=== PATIENT | male | born 1950 | race Caucasian/White ===

== ENCOUNTER → 2022-01-03 | Outpatient (CLI) | payer MEDICARE, OTHER ==
[~2022-01-03] MED LIST: Ambien5 MG PO; GABA100 PO; GLIP5ER PO; LEVEMIR FL100 UNIT/2 SC; LISI20 PO; VITAMIN B122500 MC1 PO
== END | disposition home or self-care (01) ==
LOC: LAB 10:46 → LAB SHORT 10:46
DX: J02.9 Acute pharyngitis, unspecified (principal)
CPT/HCPCS: 87081

== ENCOUNTER 2022-04-15 10:25 | Inpatient (IN) | payer MEDICARE, OTHER ==
[~2022-04-15] VITALS: Ht 180.3 cm; Wt 66.0 kg
[2022-04-15 13:57] LABS: Influenza A, PCR NEGATIVE (NEGATIVE); Influenza B, PCR NEGATIVE (NEGATIVE); Resp Syncytial Virus, PCR NEGATIVE (NEGATIVE); SARS-Cov-2 (COVID-19) PCR, MMC NEGATIVE (NEGATIVE)
[2022-04-15] MEDS ORDERED: PLAVIX75 MG PO (14:40)
[2022-04-15] MEDS ORDERED: ONDA8 PO (14:40)
[2022-04-15] MEDS ORDERED: GLIP10ER PO (14:41)
[2022-04-15] MEDS ORDERED: PEPCID40 MG PO (14:41)
[2022-04-15] MEDS ORDERED: [UNRECOGNIZED DRUG - CODE] PO (14:42)
[2022-04-15] MEDS ORDERED: MULVITA PO (14:42)
[2022-04-15] MEDS ORDERED: ATOR40TA PO (14:42)
[2022-04-15] MEDS ORDERED: MAGNESIUM OXID500 MG PO (14:43)
[2022-04-15 16:00] LABS: International Normalized Ratio 1.22; Prothrombin Time Results 12.6 Sec (9.7-11.5)
--- NOTE | 2022-04-15 19:35 | NUR ---
PATIENT ARRIVED TO MEDICAL FLOOR AT 1810. ORIENTED TO ROOM. HE IS ALERT AND ABLE TO ANSWER QUESTIONS APPROPRIATELY. REVIEWED FALL SAFETY. AT THIS TIME HE IS A ONE PERSON STAND BY ASSIST. HE IS INDEPENDENT AT BASELINE. CLAIRIFIED ORDERS WITH , PATIENT CAN HAVE CLEAR LIQUID DIET AND BLOOD SUGAR CHECKS AND SS INSULIN TO BE CHANGED TO AC&HS. REPORT GIVEN TO KATHLEEN MANN.
--- NOTE | 2022-04-16 04:06 | NUR ---
SHIFT SUMMARY PT HAD TWO EPISODES OF EMESIS. MEDICATED PER EMAR. PT CONTINUES TO HAVE PAIN IN HIS ABD. MEDICATED PER EMAR. PT OTHERWISE PLEASANT AND COOPERATIVE. PT HAS BILIARY DRAIN THAT IS DRAINING DARK BROWNISH COLOR LIQUID. DRAIN DRESSING IS IN TACT. PT HAS NO COMPLAINTS AT THIS TIME. CALL LIGHT IS WITHIN HIS REACH.
[2022-04-16 04:42] LABS: BASOPHILS ABSOLUTE AUTO 0.03 K/mm3 (0.00-0.23); BASOPHILS PERCENT AUTO 0 % (0-2); EOSINOPHILS ABSOLUTE AUTO 0.11 K/mm3 (0.00-0.68); EOSINOPHILS PERCENT AUTO 1 % (0-6); Hematocrit 28.9 % (37.0-53.0); Hemoglobin 10.2 g/dL (13.5-17.5); IMMATURE GRAN ABSOLUTE AUTO 0.05 K/mm3 (0.00-0.10); IMMATURE GRAN PERCENT AUTO 1 % (0-1); LYMPHOCYTES ABSOLUTE AUTO 0.85 K/mm3 (0.84-5.20); LYMPHOCYTES PERCENT AUTO 11 % (21-46); MONOCYTES ABSOLUTE AUTO 0.58 K/mm3 (0.16-1.47); MONOCYTES PERCENT AUTO 7 % (4-13); Mean Corpuscular HGB Conc 35.3 g/dL (31.5-36.5); Mean Corpuscular Volume 88 fL (80-100); Mean Platelet Volume 9.7 fL (9.1-12.4); NEUTROPHILS ABSOLUTE AUTO 6.39 K/mm3 (1.96-9.15); NEUTROPHILS PERCENT AUTO 80 % (41-73); Platelet Count 287 K/mm3 (150-400); RDW Coefficient Variation 16.7 % (11.7-14.2); RDW Standard Deviation 53.3 fL (35.1-46.3); Red Blood Cell Count 3.29 M/mm3 (4.30-5.90); White Blood Cell Count 8.01 K/mm3 (4.00-11.30)
[2022-04-16 05:10] LABS: Albumin, Blood 2.8 g/dL (3.4-5.0); Albumin/Globulin Ratio 0.9 (0.8-1.8); Bilirubin, Total 9.9 mg/dL (0.1-1.0); Bun/Creatinine Ratio 45.1 (12.0-20.0); Calcium, Blood 8.4 mg/dL (8.5-10.1); Creatinine, Blood 0.51 mg/dL (0.60-1.20); Magnesium, Blood 2.4 mg/dL (1.6-2.4); Potassium, Blood 4.4 mmol/L (3.5-5.5); Total Protein, Blood 5.8 g/dL (6.4-8.2)
--- NOTE | 2022-04-16 05:47 | NUR ---
CALLED ANSWERING SERVICE FOR CONSULT FOR DR. ERAZO FOR TODAY
--- NOTE | 2022-04-16 17:59 | NUR ---
SHIFT SUMMARY PATIENT MEDICATED FOR PAIN X3. PATIENT MEDICATED FOR NAUSEA X5. PATIENT DENIES SHORTNESS OF BREATH. PATIENT HAD MULTIPLE ROUNDS OF EMESIS. PATIENT BILIARY DRAIN EMPTIED FREQUENTLY. PATIENT IS A SBA IN ROOM. DR. ERAZO CONSULTED, SEE NOTES. CT OF CHEST WITH CONTRAST DONE. DR. CARRIZALES CONSULTED. SEE NOTES. CT BX OF PANCREAS ORDERED, PER RADIOLOGY UNABLE TO PERFORM. DR. CARRIZALES NOTIFIED, HE WILL DOTHE BIOPSY TOMORROW, 04/17. PATIENT TO BE NPO AFTER BREAKFAST FOR THAT PROCEDURE. PATIENT IS UNABLE TO KEEP CLEAR LIQUID DIET DOWN. PATIENT IS VERY PLEASANT AND COOPERATIVE WITH CARE.
--- NOTE | 2022-04-16 18:38 | NUR ---
Met pt this evening, introduced myself as Palliative Care, explained we are an "extra layer of support" for pt's and families. We made small talk for several minutes, and pt states, "Yes that would be really nice" when I asked if I can visit again tomorrow. Unsure when pt will have results of imaging, so providing no insite on tests at this point. Will continue with daily visits.
--- NOTE | 2022-04-17 03:54 | NUR ---
SHIFT SUMMARY PT CONTINUES TO BE NAUSEATED AND IN PAIN. PT HAS BEEN MEDICATED PER EMAR SEVERAL TIMES THIS SHIFT FOR NAUSEA AND PAIN. CALLED DR. WALLS AND WAS GIVEN A ONE TIME DOSE OF FENTANYL AND AN INCREASE IN REGLAN FROM 5 TO 10. PT VOMITING THROUGHOUT SHIFT AND STS HE CANNOT DO ANOTHER NIGHT LIKE THIS. PT HAS CALL LIGHT WITHIN REACH.
[2022-04-17 04:41] LABS: BASOPHILS ABSOLUTE AUTO 0.04 K/mm3 (0.00-0.23); BASOPHILS PERCENT AUTO 0 % (0-2); EOSINOPHILS PERCENT AUTO 0 % (0-6); Hematocrit 33.4 % (37.0-53.0); Hemoglobin 11.6 g/dL (13.5-17.5); IMMATURE GRAN ABSOLUTE AUTO 0.08 K/mm3 (0.00-0.10); IMMATURE GRAN PERCENT AUTO 1 % (0-1); LYMPHOCYTES ABSOLUTE AUTO 0.67 K/mm3 (0.84-5.20); LYMPHOCYTES PERCENT AUTO 6 % (21-46); MONOCYTES ABSOLUTE AUTO 0.79 K/mm3 (0.16-1.47); MONOCYTES PERCENT AUTO 7 % (4-13); Mean Corpuscular HGB 30.9 pg (26.0-34.0); Mean Corpuscular HGB Conc 34.7 g/dL (31.5-36.5); Mean Corpuscular Volume 89 fL (80-100); NEUTROPHILS ABSOLUTE AUTO 9.65 K/mm3 (1.96-9.15); NEUTROPHILS PERCENT AUTO 86 % (41-73); Platelet Count 379 K/mm3 (150-400); RDW Coefficient Variation 16.7 % (11.7-14.2); RDW Standard Deviation 53.6 fL (35.1-46.3); Red Blood Cell Count 3.75 M/mm3 (4.30-5.90); White Blood Cell Count 11.23 K/mm3 (4.00-11.30)
[2022-04-17 05:02] LABS: Albumin, Blood 3.3 g/dL (3.4-5.0); Albumin/Globulin Ratio 0.9 (0.8-1.8); Bilirubin, Total 9.7 mg/dL (0.1-1.0); Bun/Creatinine Ratio 26.3 (12.0-20.0); Calcium, Blood 9.7 mg/dL (8.5-10.1); Creatinine, Blood 0.69 mg/dL (0.60-1.20); Globulin, Blood 3.7 g/dL (2.2-4.0)
--- NOTE | 2022-04-17 12:36 | NUR ---
Pt is experiencing intractable nausea/vomiting today. He has not been able to take so much as a sip of water without immediately wretching. Received orders for Haldol Sublingual from Dr. Agudelo after a pharmacy consult re: n/v. Will continue to follow.
--- NOTE | 2022-04-17 12:50 | NUR ---
Pt's overall condition is declining rapidly; he continues to have n/v in between napping. He has also been attempting to drink out of the sink in his room even though he knows/knew he was NPO prior to having biopsy today. He doesn't remember this suddenly, and is speaking in word salad, and doesn't remember speaking to the nurse or taking any IV or other medications. Istrate informed, and he will call Dr. Arevalo as well as ordering new meds for pain, anxiety, and nausea. Plan to call pt's sister, to let her know of pt's current condition. Will continue to work with this patient.
--- NOTE | 2022-04-17 13:32 | NUR ---
Placed call to pt's sister Kassy who tells me she is currently en route to the hospital. She states the pt told her this morning he has cancer with lung involvement. She states she will be here in about 2 hours. Reviewed current plan of care and pt's condition with Kassy. Will discuss goals of care further when she arrives.
[2022-04-17 13:37] LABS: BASOPHILS ABSOLUTE AUTO 0.03 K/mm3 (0.00-0.23); BASOPHILS PERCENT AUTO 0 % (0-2); EOSINOPHILS PERCENT AUTO 0 % (0-6); Hematocrit 33.6 % (37.0-53.0); Hemoglobin 11.8 g/dL (13.5-17.5); IMMATURE GRAN ABSOLUTE AUTO 0.05 K/mm3 (0.00-0.10); IMMATURE GRAN PERCENT AUTO 0 % (0-1); LYMPHOCYTES ABSOLUTE AUTO 0.85 K/mm3 (0.84-5.20); LYMPHOCYTES PERCENT AUTO 6 % (21-46); MONOCYTES ABSOLUTE AUTO 1.14 K/mm3 (0.16-1.47); MONOCYTES PERCENT AUTO 8 % (4-13); Mean Corpuscular HGB 31.1 pg (26.0-34.0); Mean Corpuscular HGB Conc 35.1 g/dL (31.5-36.5); Mean Corpuscular Volume 89 fL (80-100); Mean Platelet Volume 9.7 fL (9.1-12.4); NEUTROPHILS ABSOLUTE AUTO 11.96 K/mm3 (1.96-9.15); NEUTROPHILS PERCENT AUTO 85 % (41-73); Platelet Count 408 K/mm3 (150-400); RDW Coefficient Variation 16.8 % (11.7-14.2); RDW Standard Deviation 53.8 fL (35.1-46.3); Red Blood Cell Count 3.79 M/mm3 (4.30-5.90); White Blood Cell Count 14.03 K/mm3 (4.00-11.30)
[2022-04-17 13:41] LABS: Albumin, Blood 3.5 g/dL (3.4-5.0); Albumin/Globulin Ratio 0.9 (0.8-1.8); Bun/Creatinine Ratio 30.5 (12.0-20.0); Calcium, Blood 10.1 mg/dL (8.5-10.1); Creatinine, Blood 0.76 mg/dL (0.60-1.20); Globulin, Blood 3.9 g/dL (2.2-4.0); Potassium, Blood 3.8 mmol/L (3.5-5.5); Total Protein, Blood 7.4 g/dL (6.4-8.2)
--- NOTE | 2022-04-17 15:15 | NUR ---
PROCEDURE PER DR. COOK, GIVE 1MG ATIVAN IV AT 1430 FOR BIOPSY AT 1500. MEDICATION RECIEVED FROM PHARMACY AND GIVEN. TRANSPORT TOOK PATIENT AT 1450. PATIENT FAMILY IN ROOM.
--- NOTE | 2022-04-17 19:33 | NUR ---
SHIFT SUMMARY PATINET MEDICATED FOR PAIN X5. PATIENT MEDICATED FOR NAUSEA X5. PATIENT DENIES SHORTNESS OF BREATH. PATIENT MEDICATED WITH ATIVAN FOR NAUSEA PER THE PALLIATIVE CARE NURSE X2. PATINET MEDICATED WITH HALDOL FOR SAME X2. PATIENT CONTINUED TO VOMIT THROUGHOUT SHIFT. PATIENT IS HAVING INCREASING CONFUSION. PALLIATIVE CARE NURSE CONSULTED THROUGHOUT DAY, SEE NOTES. PATIENT TAKEN FOR BIOPSY. PER DR. COOK, STOMACH WAS FULL AND PLACED ORDERS FOR NG. 3 RNS ATTEMPTED TO PLACED NG, NOT SUCCESSFUL. NIGHTSHIFT CHARGE NURSE ATTEMPTED, NO SUCCESS. NIGHTSHIFT RN WILL ATTEMPT AGAIN. PATIENT CALLED FAMILY AND INFORMED THEM OF HOSPITALIZATION, THEY VISITED THIS AFTERNOON. PATIENT HAS REQUESTED HIS NOT BE GIVEN INFORMATION, THEY ARE ESTRANGED. PATIENT UNABLE TO KEEP ANYTHING DOWN, INCLUDING LIQUIDS AND MEDICATIONS.
--- NOTE | 2022-04-17 20:20 | NUR ---
NG TUBE PLACED BY SANDRA RAMON RN AFTER SEVERAL ATTEMPTS BY MEDICAL FLOOR STAFF. HOOKED UP TO INTERMITTENT SUCTION WITH BROWN LIQUID DRAINING.
--- NOTE | 2022-04-17 22:30 | NUR ---
SON CAROLYNN CALLED EARLIER, I TRIED TO RETURN HIS CALL, NO ANSWER. SISTER KIMBERLEY CALLED EARLIER ALSO. SHE WILL COME IN TO VISIT EARLY TOMORROW MORNING. CAROLYNN [phone] KIMBERLEY [phone]
--- NOTE | 2022-04-18 04:13 | NUR ---
SHIFT SUMMARY PT HAD NG PLACED AT THE BEGINNING OF THE SHIFT BY ICU NURSE. PT HOOKED TO SUCTION AND HAS HAD AN OUTPUT OF OVER 2450 ML AT THIS TIME. PT SEEMS INCREASINGLY CONFUSED AT TIMES, TRYING TO PULL AT NG TUBE OR TRYING TO GET OUT OF BED. PT TRIED DRINKING HIS OWN BILE OUT OF THE [employer] VOMIT BUCKETS. PT CAN BE IMPULSIVE AND AT TIMES GETS OUT OF BED WITHOUT CALLING FOR HELP. PT CONTINUES TO BE NAUSEATED, BUT IT SEEMS TO HAVE SLOWED SINCE YESTERDAY. PT STILL COMPLAINS OF PAIN AND NAUSEA OFTEN. MEDICATED PER EMAR. PT HAS CALL LIGHT WITHIN REACH AND HAS NO COMPLAINTS AT THIS TIME.
[2022-04-18 06:15] LABS: BASOPHILS ABSOLUTE AUTO 0.02 K/mm3 (0.00-0.23); BASOPHILS PERCENT AUTO 0 % (0-2); EOSINOPHILS PERCENT AUTO 0 % (0-6); Hematocrit 31.4 % (37.0-53.0); Hemoglobin 10.6 g/dL (13.5-17.5); IMMATURE GRAN ABSOLUTE AUTO 0.07 K/mm3 (0.00-0.10); IMMATURE GRAN PERCENT AUTO 1 % (0-1); LYMPHOCYTES ABSOLUTE AUTO 0.77 K/mm3 (0.84-5.20); LYMPHOCYTES PERCENT AUTO 5 % (21-46); MONOCYTES ABSOLUTE AUTO 1.28 K/mm3 (0.16-1.47); MONOCYTES PERCENT AUTO 9 % (4-13); Mean Corpuscular HGB 30.6 pg (26.0-34.0); Mean Corpuscular HGB Conc 33.8 g/dL (31.5-36.5); Mean Corpuscular Volume 91 fL (80-100); Mean Platelet Volume 9.9 fL (9.1-12.4); NEUTROPHILS PERCENT AUTO 85 % (41-73); Platelet Count 408 K/mm3 (150-400); RDW Coefficient Variation 16.9 % (11.7-14.2); Red Blood Cell Count 3.46 M/mm3 (4.30-5.90); White Blood Cell Count 14.14 K/mm3 (4.00-11.30)
[2022-04-18 06:36] LABS: C-REACTIVE PROTEIN, EXT RANGE 7.89 mg/dL (0.000-0.300)
[2022-04-18 06:37] LABS: Albumin, Blood 2.9 g/dL (3.4-5.0); Albumin/Globulin Ratio 0.8 (0.8-1.8); Bilirubin, Total 8.3 mg/dL (0.1-1.0); Calcium, Blood 9.3 mg/dL (8.5-10.1); Creatinine, Blood 0.9 mg/dL (0.60-1.20); Globulin, Blood 3.6 g/dL (2.2-4.0); Potassium, Blood 3.2 mmol/L (3.5-5.5); Total Protein, Blood 6.5 g/dL (6.4-8.2)
--- NOTE | 2022-04-18 17:53 | NUR ---
SHIFT SUMMARY PATIENT MEDICATED FOR PAIN X1. PATIENT MEDICATED FOR NAUSEA X3. PATIENT DENIES SHORTNESS OF BREATH. XRAY THIS MORNING SHOWED NG IN ESOPHOGUS. REMOVED NG AND REPLACED. REPEAT XR SHOWED NG IN STOMACH. MEDICATIONS ABLE TO BE GIVEN AT THAT TIME THROUGH NG. OUTPUT FROM NG TOTAL THIS SHIFT IS 1200. PATIENT NPO EXCEPT SOME ICE CHIPS. PATIENT IS A SBA FOR LINE MANAGEMENT. PATIENT STATES HE IS FEELING BETTER. ENEMA PERFORMED TODAY, MEDIUM PEBBLE LIKE OUTPUT. PATIENT HAD SISTER VISIT THROUGHOUT SHIFT. PATIENT IS PLEASANT AND COOPERATIVE WITH CARE.
[2022-04-19 05:56] LABS: BASOPHILS ABSOLUTE AUTO 0.03 K/mm3 (0.00-0.23); BASOPHILS PERCENT AUTO 0 % (0-2); EOSINOPHILS ABSOLUTE AUTO 0.06 K/mm3 (0.00-0.68); EOSINOPHILS PERCENT AUTO 1 % (0-6); Hematocrit 30.4 % (37.0-53.0); Hemoglobin 9.9 g/dL (13.5-17.5); IMMATURE GRAN ABSOLUTE AUTO 0.05 K/mm3 (0.00-0.10); IMMATURE GRAN PERCENT AUTO 1 % (0-1); LYMPHOCYTES PERCENT AUTO 11 % (21-46); MONOCYTES ABSOLUTE AUTO 0.74 K/mm3 (0.16-1.47); MONOCYTES PERCENT AUTO 7 % (4-13); Mean Corpuscular HGB Conc 32.6 g/dL (31.5-36.5); Mean Corpuscular Volume 95 fL (80-100); Mean Platelet Volume 9.8 fL (9.1-12.4); NEUTROPHILS ABSOLUTE AUTO 7.97 K/mm3 (1.96-9.15); NEUTROPHILS PERCENT AUTO 80 % (41-73); Platelet Count 378 K/mm3 (150-400); RDW Coefficient Variation 17.1 % (11.7-14.2); RDW Standard Deviation 58.1 fL (35.1-46.3); Red Blood Cell Count 3.19 M/mm3 (4.30-5.90); White Blood Cell Count 9.95 K/mm3 (4.00-11.30)
--- NOTE | 2022-04-19 06:30 | NUR ---
SUMMARY PT PAIN AND NAUSEA TX PER EMAR WITH RELIEF. PT NG TUBE WAS CLAMPED AND STARTED ON CLEAR LIQUIDS PER DR AGOSTO. NG CLAMPED AT 2100 HRS AND HAS BEEN TOLERATING FINE WITH NO EMISIS. PT HAD WATER AND ICE CHIPS. PT HAD DIFFICULTY SLEEPING DURING THE NIGHT. BILIARY DRAIN DRAINING BILE, SITE IS CDI. PT REPORTS PAIN AT DRAIN SITE AT TIMES. PT CURRENTLY SLEEPING IN NO DISTRESS. CALL LIGHT IN REACH.
[2022-04-19 06:32] LABS: Albumin, Blood 2.6 g/dL (3.4-5.0); Albumin/Globulin Ratio 0.7 (0.8-1.8); Bilirubin, Total 7.4 mg/dL (0.1-1.0); Bun/Creatinine Ratio 28.5 (12.0-20.0); Calcium, Blood 8.9 mg/dL (8.5-10.1); Creatinine, Blood 0.81 mg/dL (0.60-1.20); Globulin, Blood 3.6 g/dL (2.2-4.0); Magnesium, Blood 2.2 mg/dL (1.6-2.4); Phosphorus, Blood 3.4 mg/dL (2.5-4.9); Potassium, Blood 3.2 mmol/L (3.5-5.5); Total Protein, Blood 6.2 g/dL (6.4-8.2)
--- NOTE | 2022-04-19 17:13 | NUR ---
SHIFT SUMMARY PT AXO X3-4 BUT VERY FORGETFUL AND CONFUSED AT TIMES. EVERY TIME THIS NURSE WAS IN THE ROOM, PATIENT WOULD ASK IF HE "COULD HAVE ANY MORE MEDICATIONS." PATIENT EXPRESSED CONCERN THAT IF HE WAS NOT USING THE PAIN AND NAUSEA MEDICATIONS THAT HE WAS AFRAID THAT THEY WOULDNT BE PRESCRIBED UPON DISCHARGE. DR AGOSTO AWARE. CLEAR LIQUID DIET INITIATED AT 1130, PT TOLERATED WELL. PER DR AGOSTO'S REQUEST, NG TUBE REMOVED AT 1620. BILIARY DRAIN PATENT AND DRAINING GREEN OUTPUT. 550 ML SO FAR THIS SHIFT. IV PATENT AND INFUSING PER EMAR. PT MEDICATED FOR PAIN AND NAUSEA PER EMAR. THIS NURSE PRESENT FOR DR AGOSTO DISCUSSION WITH PATIENT AND HIS BROTHER AND BROTHER IN LAW. THESE BROTHERS STATE THAT THIS PATIENT CANNOT BE DISCHARGED TO THEIR HOMES DUE TO CAREGIVING NEEDS OF PATIENT'S SISTER. IT IS ALSO NOT AN OPTION TO RETURN TO [place] DUE TO COMPLICATED FAMILY DYNAMICS. PATIENT WILL NEED A SAFE DISCHARGE PLAN. BED IN LOW POSITION, CALL LIGHT WITHIN REACH, BED ALARM ON.
--- NOTE | 2022-04-19 17:45 | NUR ---
PATIENT'S SPOUSE CALLED FOR AN UPDATE ON PATIENT. THIS NURSE ASKED PATIENT IF I COULD UPDATE HER AND HE SAID "NO." PATIENT STATES THAT SHE IS HIS ESTRANGED AND HE DOES NOT WANT HER TO KNOW ANY OF HIS INFORMATION. SHE WAS VERY UPSET WHEN THIS NURSE APOLIGIZED AND STATED THAT AN UPDATE COULD NOT BE PROVIDED AT THIS TIME. SHE ASKED TO SPEAK TO THIS NURSE'S "COMMERCIAL LOAN REVIEWER." THIS NURSE DIRECTED HER TO CALL THE HOSPITAL BACK AT THE MAIN NUMBER AND ASK FOR THE NURSING PRODUCT LISTER.
--- NOTE | 2022-04-20 04:10 | NUR ---
Rn summary: Patient is alert and oriented. He had his NG tube removed on day shift. Since then he has been drinking lg amounts of clear liquids. He has c/o nausia most of shift until 0400. He was medicated with reglan and zofran. I did limit what he could drink until he felt better. Pt was medicated with Ativan 2mg po due to restlessness and anxiety. Pt has also been medicated with 25mcg of fentanyl q 2 hours. Pt states at 0400 that he feels hungry and denies nausia. Cup of hot tea, reminded to sip and drink small amounts. Pt is voiding, no stools yet this shift. He has had 175 cc out of his billiary drain, med green in color. Hypoactive bowel tones. Pt does stand and walk two steps to the commode. He has bed alarm on and uses the call light appropriately. Will continue to assist as needed.
[2022-04-20 05:53] LABS: BASOPHILS ABSOLUTE AUTO 0.03 K/mm3 (0.00-0.23); BASOPHILS PERCENT AUTO 0 % (0-2); EOSINOPHILS ABSOLUTE AUTO 0.51 K/mm3 (0.00-0.68); EOSINOPHILS PERCENT AUTO 7 % (0-6); Hematocrit 27.4 % (37.0-53.0); Hemoglobin 8.9 g/dL (13.5-17.5); IMMATURE GRAN ABSOLUTE AUTO 0.04 K/mm3 (0.00-0.10); IMMATURE GRAN PERCENT AUTO 1 % (0-1); LYMPHOCYTES ABSOLUTE AUTO 1.45 K/mm3 (0.84-5.20); LYMPHOCYTES PERCENT AUTO 20 % (21-46); MONOCYTES ABSOLUTE AUTO 0.54 K/mm3 (0.16-1.47); MONOCYTES PERCENT AUTO 7 % (4-13); Mean Corpuscular HGB 30.8 pg (26.0-34.0); Mean Corpuscular HGB Conc 32.5 g/dL (31.5-36.5); Mean Corpuscular Volume 95 fL (80-100); Mean Platelet Volume 9.6 fL (9.1-12.4); NEUTROPHILS ABSOLUTE AUTO 4.83 K/mm3 (1.96-9.15); NEUTROPHILS PERCENT AUTO 65 % (41-73); Platelet Count 316 K/mm3 (150-400); RDW Coefficient Variation 15.8 % (11.7-14.2); Red Blood Cell Count 2.89 M/mm3 (4.30-5.90)
[2022-04-20 06:18] LABS: Albumin, Blood 2.2 g/dL (3.4-5.0); Albumin/Globulin Ratio 0.7 (0.8-1.8); Bilirubin, Total 6.5 mg/dL (0.1-1.0); Bun/Creatinine Ratio 27.3 (12.0-20.0); Calcium, Blood 8.1 mg/dL (8.5-10.1); Creatinine, Blood 0.59 mg/dL (0.60-1.20); Magnesium, Blood 1.8 mg/dL (1.6-2.4); Phosphorus, Blood 1.8 mg/dL (2.5-4.9); Potassium, Blood 3.2 mmol/L (3.5-5.5); Total Protein, Blood 5.2 g/dL (6.4-8.2)
[2022-04-21 05:16] LABS: BASOPHILS ABSOLUTE AUTO 0.02 K/mm3 (0.00-0.23); BASOPHILS PERCENT AUTO 0 % (0-2); EOSINOPHILS PERCENT AUTO 7 % (0-6); Hematocrit 28.8 % (37.0-53.0); Hemoglobin 9.6 g/dL (13.5-17.5); IMMATURE GRAN ABSOLUTE AUTO 0.03 K/mm3 (0.00-0.10); IMMATURE GRAN PERCENT AUTO 1 % (0-1); LYMPHOCYTES ABSOLUTE AUTO 1.27 K/mm3 (0.84-5.20); LYMPHOCYTES PERCENT AUTO 22 % (21-46); MONOCYTES ABSOLUTE AUTO 0.41 K/mm3 (0.16-1.47); MONOCYTES PERCENT AUTO 7 % (4-13); Mean Corpuscular HGB 31.4 pg (26.0-34.0); Mean Corpuscular HGB Conc 33.3 g/dL (31.5-36.5); Mean Corpuscular Volume 94 fL (80-100); NEUTROPHILS ABSOLUTE AUTO 3.75 K/mm3 (1.96-9.15); NEUTROPHILS PERCENT AUTO 64 % (41-73); Platelet Count 324 K/mm3 (150-400); RDW Standard Deviation 51.8 fL (35.1-46.3); Red Blood Cell Count 3.06 M/mm3 (4.30-5.90); White Blood Cell Count 5.88 K/mm3 (4.00-11.30)
--- NOTE | 2022-04-21 05:46 | NUR ---
SUMMARY PT HAD NO EPISODES OF NAUSEA OR VOMITING. PT HAS BEEN DRINKING PO FLUIDS WITHOUT ISSUE. PT REPORTS THIS AM HE IS HUNGRY. PT REPORTS PAIN AT DRAIN SITE POST HIS FALL YESTERDAY. DRESSING HAS SOME NOTED SHADOWING AND SKIN AROUND SITE IS UNREMARKABLE. DRAIN IS IS STILL DRAINING WELL. BILE HAS ONLY BEEN NOTED IN DRAIN. PT TX PER EMAR. CALL LIGHT IN REACH AND BED ALARM ON.
[2022-04-21 05:48] LABS: Albumin, Blood 2.2 g/dL (3.4-5.0); Albumin/Globulin Ratio 0.6 (0.8-1.8); Bun/Creatinine Ratio 20.9 (12.0-20.0); Calcium, Blood 8.1 mg/dL (8.5-10.1); Creatinine, Blood 0.57 mg/dL (0.60-1.20); Globulin, Blood 3.4 g/dL (2.2-4.0); Magnesium, Blood 1.8 mg/dL (1.6-2.4); Phosphorus, Blood 2.6 mg/dL (2.5-4.9); Potassium, Blood 3.4 mmol/L (3.5-5.5); Total Protein, Blood 5.6 g/dL (6.4-8.2)
--- NOTE | 2022-04-21 11:51 | NUR ---
THIS NURSE CALLED DR CARRIZALES'S CELL. NO ANSWER. LEFT MESSAGE TO RETURN CALL.
--- NOTE | 2022-04-21 11:56 | NUR ---
DR CARRIZALES'S MA, VIVI, CALLED AT 1156 REGARDING THIS PATIENT, HIS FALL YESTERDAY AND THAT THE BILIARY DRAIN WAS PULLED OUT PARTIALLY R/T FALL. THIS NURSE COULD NOT SEE ANY DOCUMENTATION OF NURSE CONTACTING DR CARRIZALES YESTERDAY. DINA STATES THAT SHE WILL SPEAK WITH AND GET BACK TO THIS NURSE.
--- NOTE | 2022-04-21 18:18 | NUR ---
SHIFT SUMMARY PT AXO X3-4, PLEASANT AND COOPERATIVE WITH CARE. THOUGH FIXATES ON DIFFERENT TOPICS THROUGHOUT THE DAY. VSS. MEDICATED FOR PAIN AND NAUSEA PER EMAR. PATIENT EAGER TO ADVANCE DIET TO "REAL FOOD" BUT AFTER CLEAR LIQUID DIET PT REQUESTED NAUSEA MEDICATION. HE STATED THAT HIS NAUSEA WAS RELATED TO HIS STRESS RATHER THAN FOOD. IV PATENT AND INFUSING PER EMAR. DR ERAZO IN TO SEE PATIENT, SEE NOTE. FAMILY PRESENT IN ROOM THROUGHOUT THE DAY. BED IN CHRISTOFER POSITION, CALL LIGHT WITHIN REACH, BED AND CHAIR ALARM. BILI DRAIN PATENT AND DRAINING GREENISH BROWN LIQUID THROUGHOUT THE DAY. AWAITING DR. CARRIZALES TO ASSESS DRAIN SITE R/T FALL AND DISPLACEMENT OF DRAIN. PER DR. CARRIZALES'S MA, HE IS AWARE THAT HE NEEDS TO SEE PATIENT.
[2022-04-22 05:07] LABS: Hematocrit 30.5 % (37.0-53.0); Hemoglobin 10.2 g/dL (13.5-17.5); Mean Corpuscular HGB Conc 33.4 g/dL (31.5-36.5); Mean Corpuscular Volume 93 fL (80-100); Mean Platelet Volume 9.9 fL (9.1-12.4); Platelet Count 293 K/mm3 (150-400); RDW Coefficient Variation 14.7 % (11.7-14.2); RDW Standard Deviation 49.1 fL (35.1-46.3); Red Blood Cell Count 3.29 M/mm3 (4.30-5.90); White Blood Cell Count 6.86 K/mm3 (4.00-11.30)
[2022-04-22 05:33] LABS: Albumin, Blood 2.1 g/dL (3.4-5.0); Albumin/Globulin Ratio 0.7 (0.8-1.8); Bilirubin, Total 5.6 mg/dL (0.1-1.0); Bun/Creatinine Ratio 12.5 (12.0-20.0); Calcium, Blood 8.2 mg/dL (8.5-10.1); Creatinine, Blood 0.56 mg/dL (0.60-1.20); Globulin, Blood 3.2 g/dL (2.2-4.0); Potassium, Blood 3.6 mmol/L (3.5-5.5); Total Protein, Blood 5.3 g/dL (6.4-8.2)
--- NOTE | 2022-04-22 06:33 | NUR ---
Rn summary: Pt is alert and forgetful. Pt with bedalarm on because he forgets to call. Pt is sleepy due to meds. Patient had 1 small emisis and 1 very large watery emisis all over floor plus 100 in commode. Pt has not had anything to drink this shift, he does not ask for fluids or say he is hungry. Bilialary drain with 285 out, yellowish green. Pt medicated x3 with phenergan 25mg, zofran 8mg x1 and Roxanol 20mg x3. Pt has been able to ret well. Bed alarm is on. Call light in reach.
--- NOTE | 2022-04-22 15:22 | NUR ---
After several hours of communications with family and patient today, the pt has agreed to return home to [place]. Dr. Arevalo called Palliative Care this morning to discuss the pt's current situation. Dr. Arevalo is declining to set up a treatment plan as the pt has no stable housing in this area. The pt has a [place] residence with his , and his 2 adult children live nearby, and returning is the only real option at this point. Pt has also decided to change Code Status to DNR, and has also once again agreed that his family may know his medical status and current details surrounding treatment, etc. At the time of this writing, several new issues have arisen. Unsure if the pt would even be able to tolerate a several hour transfer. His N/V has again been challenging to manage today. He is going to be re-evaluated by Dr. Mcbride to see if the pt is appropriate for internal stent placement. Palliative to continue following.
--- NOTE | 2022-04-22 16:44 | NUR ---
PT ARRIVED TO ROOM 348 FROM ROOM 301 VIA BED. REPORT TAKEN FROM ROBINSON MANN. THE PT WAS SLEEPING THEN AWOKE AND IMMEDIATLY STARTED TO HAVE EMISIS AND PAIN. PT WAS MEDICATED FOR EMISIS AND PAIN. THE PT WAS ORIENTED TO THE ROOM LAYOUT AND CALL SYSTEM. PT TAKEN AT THIS TIME TO THE HATCHERY MAN FOR ADVANCEMENT OF HIS ABD DRAIN. FAMILY HAS BEEN AT THE BEDSIDE T/O THE DAY
--- NOTE | 2022-04-22 17:01 | NUR ---
Pt indicated this afternoon he wishes to change his code status to DNR. Pt confirms understanding of life sustainging treatments, and wishes to be a DNR. Spoke with Dr. Joseph, relayed pt's wishes. Placed a DNR order in [facility] per V/O from Dr. Joseph.
--- NOTE | 2022-04-22 17:40 | NUR ---
Spiritual Care Nurse referral Pt. is getting a surgical procedure and will then be returned to room 348. Met with two siblings in the Surg waiting area. Siblings are requesting that Pt. be seen by a garnett fixer. Establish rapport with siblings and will monitor the situation.
--- NOTE | 2022-04-23 04:47 | NUR ---
SHIFT SUMMARY A/OX2, IMPULSIVE, ATTEMPTING TO GET OOB. RESTLESS T/O NIGHT NEEDING FREQUENT REDIRECTION. C/O ABD PAIN, MEDICATED PER EMAR. PT HAD CONTINOUS EPISODES OF DARK BROWN EMESIS WITH LITTLE RELIEF. POWERGLIDE AND MCGUIRE PLACED THIS SHIFT. SOFT BP'S. BED IN LOWEST POSITION WITH CALL LIGHT IN REACH. WILL CONTINUE TO MONITOR AND REPORT TO ONCOMING RN.
--- NOTE | 2022-04-23 04:57 | NUR ---
UPDATE PT AGITATED AND ATTEMPTING TO GET OOB AFTER FREQUENT ATTEMPTS TO REDIRECT. WHILE SITTING AT EDGE OF BED, PT BECAME SOMNOLENT AND WAS NO LONGER COMMUNICATING WITH STAFF. CONTINUOUS PICKLING LINE PICKLER PROVIDER NOTIFIED WELL IS/IT PROJECT MANAGER. PRN ORDER FOR NARCAN PLACED. RR OF 12 NOTED, NARCAN WAS NOT GIVEN AND PT WAS MORE AROUSABLE AND SPEAKING TO STAFF. WILL CONTINUE TO MONITOR
[2022-04-23 05:48] LABS: Hematocrit 31.7 % (37.0-53.0); Hemoglobin 10.5 g/dL (13.5-17.5); Mean Corpuscular HGB 31.4 pg (26.0-34.0); Mean Corpuscular HGB Conc 33.1 g/dL (31.5-36.5); Mean Corpuscular Volume 95 fL (80-100); Mean Platelet Volume 9.5 fL (9.1-12.4); Platelet Count 341 K/mm3 (150-400); RDW Coefficient Variation 15.6 % (11.7-14.2); RDW Standard Deviation 51.8 fL (35.1-46.3); Red Blood Cell Count 3.34 M/mm3 (4.30-5.90); White Blood Cell Count 11.04 K/mm3 (4.00-11.30)
[2022-04-23 06:19] LABS: Albumin, Blood 2.2 g/dL (3.4-5.0); Albumin/Globulin Ratio 0.6 (0.8-1.8); Bilirubin, Total 5.9 mg/dL (0.1-1.0); Bun/Creatinine Ratio 11.5 (12.0-20.0); Calcium, Blood 8.6 mg/dL (8.5-10.1); Creatinine, Blood 1.39 mg/dL (0.60-1.20); Globulin, Blood 3.4 g/dL (2.2-4.0); Potassium, Blood 3.3 mmol/L (3.5-5.5); Total Protein, Blood 5.6 g/dL (6.4-8.2)
--- NOTE | 2022-04-23 11:20 | NUR ---
Pt is currently in restraints. He had a nasogastric tube placed on intermittent suction this morning, and 1000 cc's were removed from pt's stomach, and his emesis subsided. According to the bedside nurse, pt continued to have N/V throughout the night with no relief with medication or reposition. Pt has not been tolerating food or drink, and has been taking in IV fluids to prevent hydration. The reason for soft wrist restraints is to keep pt from pulling the NG tube, which he did attempt as he is experiencing intermittent confusion. Met with pt's family; his , daughter, nephew and brother. Discussed concerns related to subsequent travel plans for pt. We were tentatively attempting to transfer pt to [place], [place] for cancer treatment. This looks futile, at this time anyway. Pt is extremely weak due to consistent N/V x's 2-3 days. Last night his drain in R side was readjusted by Dr. Mcbride and draining clear, thin brown fluid from blocked duct. Family does understand that pt is frail and may not be able to endure any chemotherapy, as he is requiring the NG tube along with restraints to keep it in place at this time. Family is tearful, daughter states she wants to hear from Dr. Joseph before further discussions take place. This is understandale, and also a very good plan. Dr. Joseph to meet with family today. Booklets given to family, "Hard Choices for [place] People", as they will likely utilize the information whether it's sooner or later. Palliative to remain available. Family states appreciation of ongoing support from the Palliative team.
--- NOTE | 2022-04-23 11:34 | NUR ---
Spiritual Care Attempted. Pt. is resting and is non-responsive. Will return at a later time.
--- NOTE | 2022-04-23 13:59 | NUR ---
Spiritual Care attempted again. Pt. is still not responsive and a no visitor sign is posted.
--- NOTE | 2022-04-23 17:04 | NUR ---
PT A/OX3, COOPERATIVE JAUNDICE/DUSKY IN COLOR. THIS AM THE PT HAD GROSS AMOUNTS OF EMISIS. THE PT WAS UNABLE TO GET COMFORTABLE AND HAD A HIGH LEVEL OF PAIN DUE TO THE WRETCHING. ORDERED A NG TUBE PLACEMENT PER THE PT WISHES. THE PT DID NOT TOLERATE THE INSERTION VERY WELL AND WAS REACHING TO PULL THE TUBE OUT SEVERAL TIMES. THE PT WAS RESTRAINED DUE TO THE AGITATION AND CONFUSION. THE PT WAS GIVEN IV ATIVAN X2 THIS AM. THE PT WAS BABLE TO REST ANS SLEEP FOR MOST OF THE DAY AFTER THAT. THE PT HAD OVER 1600 DARK BILE OUT FROM HIS NG TUBE IN ADDITION TO COPIOUS AMOUNTS OF EMISIS PRIOR. THE PT WAS MEDICATED FOR PAIN T/O THE DAY. THE PT AWOKE AT THIS TIME CONFUSED AND UNCOMFORTABLE PT ENCOURAGED TO RELAX AND MORPHINE AND ATIVAN WAS GIVEN PER PT REQUEST. PT SEEMS TO BE COMFERTABLE NOW. BED ALARM CYLINDER DEVALVER LIGHT IN REACH. WILL CONTINUE TO MONITOR AND ASSESS FOR CHANGES
[2022-04-23 18:31] LABS: Source, Urine Foley catheter
[2022-04-23 18:36] LABS: Blood, Urine 3+ (Neg); Color, Urine Amber (P-Yellow); Glucose Qualitative, Urine Neg (Neg); Ketones, Urine 1+ (Neg); Leukocyte Esterase, Urine 1+ (Neg); Nitrite, Urine Neg (Neg); Protein, Urine 2+ (Neg); Urobilinogen, Urine 1+ (Normal)
[2022-04-23 18:47] LABS: Bilirubin, Urine 2+ (Neg)
[2022-04-23 18:54] LABS: Appearance, Urine Hazy (Clear)
[2022-04-23 18:55] LABS: Hyaline Casts 0-2 /lpf (0-2)
[2022-04-23 18:56] LABS: Bacteria Many /hpf; Squamous Epithelial Cells Not Seen /hpf (Few)
--- NOTE | 2022-04-23 22:59 | NUR ---
PT AT START OF SHIFT VERY AGITATED, TRYING TO GET OUT OF BED. JERKING HIMSELF IN BED. PT ALSO YELLING "PLEASE HELP ME, I'M IN PAIN." PT MEDICATED WITH FENTANYL WICH INITALLY WORKED HOWEVER THEN PT AGAIN YELLING THAT HE WANTS TO GET OUT AND TRYING TO GET OUT OF BED. HALDOL IV GIVEN AND PT PLACED ON BLE SOFT WRIST RESTRAINTS ON ADDITION TO KEVEN SOFT WRIST. PT AGAIN RESTED BRIEFLY THEN WOKE UP YELLING FOR HELP HIM BECAUSE HE IS NAUSEATED AND FEELS SICK. MEDICATED WITH PHENEGRAN AND PT FINALLY FOUZIA TO GET REST. PT BP 86/48 AND NOTED TO BE 85% ON RA MOSTLY MOUTH BREATHING. PT AT THIS TIME RESTING AROUSABLE BUT OTHERWISE SLEEPING. PLACED ON 4L NC WITH SAT 93% AND NOTIFIED WITH ORDER FOR NS 500 ML BOLUS. WILL MONITOR CLOSELY. PT ALSO PLACED ON CONT. PULSE OX.
--- NOTE | 2022-04-24 00:44 | NUR ---
PT WOKE UP AFTER APPROX 2.5 HRS, YELLING AGAIN "PLEASE HELP ME I'M IN PAIN, GIVE ME MEDICINE." PT WOULD NOT STOP TRASHIHNG AROUND IN BED VERY AGITATED AT THIS TIME. MEDICATED WITH ROXANOL. ONCE 500 ML BOLUS DONE PT BP 75/56. PT DOES NOT APPEAR TO BE SYMPTOMATIC HE CONTINUES TO YELL OUT THAT HE NEEDS HELP. PER GIVE NS 1L BOLUS AND BENADRYL 25 MG IV X1.PT GIVEN BENADRYL AND AT THIS TIME BACK TO SLEEP. NS 1L BOLUS INFUSING. WILL CONT. TO CLOSELY MONITOR PT.
--- NOTE | 2022-04-24 02:16 | NUR ---
PT WITH CONTINUED HYPOTENSION AFTER TOTAL NS 1.5L BOLUS. PT CONTINUED TO HAVE PERIODS OF FALLING INTO A DEEP SLEEP FOLLOWED BY HIM WAKING UP YELLING, AGITATED AND CONTINUED TO REPORT BEING IN PAIN. NOTIFIED WITH ORDER TO TRANSFER TO ICU, ADDITIONAL NS 1L BOLUS AND LEVOPHED/PRECEDEX DRIP. TOTAL NG OUTPUT 50 ML SINCE ASSUMPTION OF CARE. BILLIARY DRAIN WITH 100 ML OUTPUT. PT SISTER KIMBERLEY NOTIFIED OF PT BEING TRANSFERED TO ICU11 AND SISTER TO COME IN AT 7 AM TO VISIT PT. REPORT CALLED TO JOSELIN MANN. PT TRANSFERED BY DAIRY FEED SALES CONSULTANT, JARON AND ROLLING ATTENDANT. ALL BELONGINGS WITH PT.
--- NOTE | 2022-04-24 02:44 | NUR ---
PT ARRIVES TO ICU 11 FROM ROOM 348. REPORT RECEIVED FROM MACKENZIE NERI. PT VERY ANXIOUS AND DEMONSTRATES HE IS SCARED OF HIS CURRENT STATUS. NEEDS A LOT OF REASSURANCE. PT MEDICATED WITH 25 MG PHENERGAN FOR COMPLAINT OF "I AM GOING TO THROW UP" ASKING FOR RN TO "RELIEVE THE PRESSURE". PT'S NGT TO LOW INTERMITTANT SUCTION. BROWNISH/GREEN RETURN. PT CURRENTLY IN FIVE POINT RESTRAINTS SECONDARY TO PT'S IMPULSIVENESS AND REPORTED PULLING AT ALL TUBES AND LINES. STARTED PRECEDEX DRIP AT 0.4 MCG'S/KG/HOUR. PT CALMING. BLOOD PRESSURES REMAIN LOW. STARTED LEVOPHE AT 4MCG'S/MIN. WILL TITRATE DRIPS TO AFFECT. WILL REVIEW CHART AND PLAN OF CARE FOR THIS PT. PER MACKENZIE NERI SHE WILL CONTACT FAMILY OF PT'S TRANSFER.
--- NOTE | 2022-04-24 03:45 | NUR ---
MD CALL CALL TO DR CORONADO REGARDING HYPOTENSION. PT ON LEVOPHED AT 10 MCQ/MIN AND RECIEVING FLUID BOLUS, BP 61/52 MAP 57 HEART RATE 91
[2022-04-24 05:01] LABS: Magnesium, Blood 1.9 mg/dL (1.6-2.4)
[2022-04-24 05:02] LABS: Albumin, Blood 1.8 g/dL (3.4-5.0); Albumin/Globulin Ratio 0.6 (0.8-1.8); Bilirubin, Total 4.3 mg/dL (0.1-1.0); Bun/Creatinine Ratio 13.7 (12.0-20.0); Calcium, Blood 7.5 mg/dL (8.5-10.1); Creatinine, Blood 1.24 mg/dL (0.60-1.20); Globulin, Blood 2.9 g/dL (2.2-4.0); Phosphorus, Blood 2.4 mg/dL (2.5-4.9); Potassium, Blood 3.4 mmol/L (3.5-5.5); Total Protein, Blood 4.7 g/dL (6.4-8.2)
--- NOTE | 2022-04-24 06:59 | NUR ---
CENTRAL LINE PLACED BY DR KENNY THIS MORNING. LEVOPHED AT 28 MCG'S VASOPRESSIN AT RATE, MAY USE ROMULO IF NEEDED. CURRENTLY BP 88/59. PRECEDEX AT 0.7MCG. HAVE ADMINISTERED 1 MG ATIVAN FOR PANIC TYPE AFFECT. PT'S FAMILY HAS COME IN TO SEE PT AND HAS BEEN UPDATED BY DR KENNY AND THIS RN. DAUGHTER AND PT'S SISTER VERBALIZES UNDERSTANDING THAT PT IS UNSTABLE AND VERY CRITICAL AT THIS TIME. REPORT GIVEN TO MACKENZIE PANG.
--- NOTE | 2022-04-24 07:36 | NUR ---
Received report from Prasanth MANN. Patient resting during report and when repositioning opens eyes with little response and goes back to sleep/ He is on 3 L O2 via NC and sats 96%.. He has NG to right nares and is on LIS. His access id [id number] PowerGlide to right upper arm dressing intact and is infusing Precedex at 0.7 mcg/kg/hr. There is also a quad lumen CL in right groin, dressing intact and site WNL's and is infusing Levophed at 28 mcg/min, Vasopressin at 0.04 units/min, NS with 20 meqK at 125ml/hr. Last he has a 20ga IV to RH and is flushed and SL'd. He has 14Fr Clark draining to gravity and has dark tea colored urine output. He has biliary drain to RUQ and has black liquid output. Son and daughter by and Dr Hunt gave update and then two other after them. BARRETT but very weak.
--- NOTE | 2022-04-24 08:15 | NUR ---
Dr Blackburn by and talked with family and patient is now comfort care and family has been coming in and out.
[2022-04-24 08:21] LABS: Hemoglobin 8.2 g/dL (13.5-17.5); Mean Corpuscular HGB 32.2 pg (26.0-34.0); Mean Corpuscular HGB Conc 32.8 g/dL (31.5-36.5); Mean Corpuscular Volume 98 fL (80-100); Mean Platelet Volume 9.8 fL (9.1-12.4); NRBC ABSOLUTE 0.05 K/mm3 (0.00-0.02); NRBC Auto 0.5 /100 WBC (0.0-0.2); Platelet Count 245 K/mm3 (150-400); RDW Coefficient Variation 17.2 % (11.7-14.2); Red Blood Cell Count 2.55 M/mm3 (4.30-5.90); White Blood Cell Count 9.47 K/mm3 (4.00-11.30)
[2022-04-24 08:50] LABS: BAND PERCENT MAN 12 % (0-8); BASOPHILS PERCENT MAN 0 % (0-2); EOSINOPHILS PERCENT MAN 0 % (0-6); LYMPHOCYTES ABSOLUTE MAN 0.85 K/mm3 (0.84-5.20); LYMPHOCYTES PERCENT MAN 9 % (21-46); MONOCYTES ABSOLUTE MAN 0.47 K/mm3 (0.16-1.47); MONOCYTES PERCENT MAN 5 % (4-13); NEUTROPHILS ABSOLUTE MAN 8.14 K/mm3 (1.96-9.15); SEG NEUTROPHILS PERCENT MAN 74 % (41-73); TOTAL CELLS COUNTED 100
--- NOTE | 2022-04-24 08:57 | NUR ---
Spiritual Care - Last Rites The Pt. is comfort care and the family requested a net developer programmer to do last rights. This net developer programmer had met with the family previously. Prayers and Annointing are given. Will remain available to the family as needed.
--- NOTE | 2022-04-24 09:16 | NUR ---
Patoral came per family request for last rights. Medicated for pain and anxiety. Turned off all pressors and ABx and left Precedex infusing. Family at bedside
--- NOTE | 2022-04-24 10:33 | NUR ---
The family had chosen [facility] as the home when the Pt. transitions.
--- NOTE | 2022-04-24 13:04 | NUR ---
Family remains at bedside and continue to medicate for pain and anxiety. Systolic 40-50 and HR 70's.
--- NOTE | 2022-04-24 15:42 | NUR ---
Gave report to 313 RN and medicated with Roxanol and Ativan. Placed on portable 3 L O2 via NC and sats 96%, Patient rate dropped to low 50's and we transported Medical floor with all belonging. When arriving in room patient very pale with agonal breaths. Very faint pulse prior to transferring to [facility] bed. Family in room when arrived. Patient passed shortly after.
--- NOTE | 2022-04-24 15:52 | NUR ---
REPORT RECEIVED FROM BIRD TIRADO RN. PT TRANSORTED TO RM 313 WITH FAMILY PRESENT. UPON MOVING PT TO BED PT TOOK ONE BREATH AND THEN NO OTHER BREATHS NOTED. AUSCULTATED HS X 2 MINUTES WITH NO HR AUSULTATED. NO RR OBSERVED IN THIS TIME. NO RADIAL PULSES PRESENT. SHIMA MANN VERIFIED NO HR. FAMILY WHO WERE PRESENT WERE NOTIFIED PT WAS . PROVIDED CONDOLENCES AND OFFERED ASSISTANCE. FAMILY REQUESTED SOME TIME ALONE WITH BIRD. NOTIFIED OF TOD WHICH WAS 04/24/22 AT 1527. PT WAS PEACEFUL WITH NO SIGNS OF PAIN OR RR DISTRESS AT TIME OF PASSING.
--- NOTE | 2022-04-24 21:25 | NUR ---
DONOR AGENCY CALLED, OKAY TO RELEASE TO HOME.
== END 2022-04-24 15:27 | DRG 435 ==
LOC: ER 10:25 → ICUW 14:48 → MEDS 14:48 → ICUW 04-24 01:58 → MEDS 04-24 15:20
PROVIDERS: Internal Medicine; Internal Medicine Critical Care Medicine; Nurse Practitioner Acute Care; Student in an Organized Health Care Education/Training Program; ADMIT Family Medicine
PROC: 0F9930Z Drainage of Common Bile Duct with Drainage Device, Percutaneous Approach (ICD-10-PCS; 2022-04-15)
PROC: 0F793DZ Dilation of Common Bile Duct with Intraluminal Device, Percutaneous Approach (ICD-10-PCS; 2022-04-15)
PROC: BF101ZZ Fluoroscopy of Bile Ducts using Low Osmolar Contrast (ICD-10-PCS; 2022-04-15)
PROC: 0FBG3ZX Excision of Pancreas, Percutaneous Approach, Diagnostic (ICD-10-PCS; 2022-04-15)
PROC: 3E033XZ Introduction of Vasopressor into Peripheral Vein, Percutaneous Approach (ICD-10-PCS; principal; 2022-04-24)
PROC: 06HY33Z Insertion of Infusion Device into Lower Vein, Percutaneous Approach (ICD-10-PCS; 2022-04-24)
DX: C25.9 Malignant neoplasm of pancreas, unspecified (principal); E43 Unspecified severe protein-calorie malnutrition; K83.1 Obstruction of bile duct; K83.09 Other cholangitis; K31.1 Adult hypertrophic pyloric stenosis; K31.5 Obstruction of duodenum; E87.2 Acidosis; C78.00 Secondary malignant neoplasm of unspecified lung; E87.1 Hypo-osmolality and hyponatremia; T78.2XXA Anaphylactic shock, unspecified, initial encounter; Z51.5 Encounter for palliative care; Z66 Do not resuscitate; K86.9 Disease of pancreas, unspecified; I10 Essential (primary) hypertension; E11.40 Type 2 diabetes mellitus with diabetic neuropathy, unspecified; K21.9 Gastro-esophageal reflux disease without esophagitis; E86.0 Dehydration; E78.00 Pure hypercholesterolemia, unspecified; R63.4 Abnormal weight loss; Z20.822 Contact with and (suspected) exposure to COVID-19; Z96.611 Presence of right artificial shoulder joint; J43.9 Emphysema, unspecified; E86.1 Hypovolemia; R91.1 Solitary pulmonary nodule; E87.6 Hypokalemia; E83.39 Other disorders of phosphorus metabolism; Z79.899 Other long term (current) drug therapy; Z79.811 Long term (current) use of aromatase inhibitors; Z79.4 Long term (current) use of insulin; Z68.20 Body mass index [BMI] 20.0-20.9, adult; Z79.84 Long term (current) use of oral hypoglycemic drugs; Z79.02 Long term (current) use of antithrombotics/antiplatelets; W19.XXXA Unspecified fall, initial encounter; Z87.891 Personal history of nicotine dependence; Z79.01 Long term (current) use of anticoagulants
CPT/HCPCS: 0241U; 36415; 36556; 47534; 47538; 48102; 70450; 71045; 71046; 71250; 71260; 74018; 74019; 74177; 76705; 76937; 77012; 80053; 80074; 81001; 81015; 82150; 82248; 82947; 83605; 83690; 83735; 84100; 84145; 85025; 85027; 85610; 86140; 86301; 87086; 87389; 88305; 94760; 96374-59; 96375; 96376; 97162; 97166; 97530; 99152; 99153; 99285-25; A9270; C1729; C1751; C1769; C1874; C1887; C1894; C9113; J0690; J1200; J1630; J1815; J2060; J2250; J2270; J2310; J2405; J2543; J2550; J2765; J3010; J3370; J3480; J7030; J7040; J7050; J7060; Q9967